=== PATIENT | female | born 1965 | race Caucasian/White ===

== ENCOUNTER 2018-12-19 04:57 | Emergency (ER) | payer BC ==
[~2018-12-19] VITALS: Ht 160 cm; Wt 59.5 kg
[~2018-12-19 04:57] MED LIST: AMOXICILLIN500 MG PO; AMOXICILLIN875 MG OR; ANTIVERT PO; ANTIVERT12.5 MG PO; CIPROFLOXACN500 MG PO; CLONAZEP ODT0.5 MG OR; CLONAZEPAM0.5 MG PO; FLAGYL500 MG PO; FLEXERIL OR; FLUARIX QUADRIV1 INJ IM; MEDDOSEPAK PO; MULTIVITAMI1 PO; MULTIVITAMIN PO; NAPROXEN500 MG OR; PERCOCET 10/31 COMBO PO; PERCOCET 5/325M1 TAB OR; PRAVASTATIN20 MG PO; ZOFRAN ODT4 MG PO
[2018-12-19 05:34] LABS: URINE BILIRUBIN - DIPSTICK NEGATIVE (NEGATIVE); URINE BLOOD DIPSTICK LARGE (NEGATIVE); URINE COLOR YELLOW; URINE GLUCOSE - DIPSTICK NEGATIVE (NEGATIVE); URINE KETONE NEGATIVE (NEGATIVE); URINE LEUK ESTERASE NEGATIVE (NEGATIVE); URINE NITRITE - DIPSTICK NEGATIVE (Negative); URINE PROTEIN - DIPSTICK NEGATIVE (NEG-TRACE); URINE SPECIFIC GRAVITY >=1.030; URINE UROBILINOGEN - DIPSTICK 0.2 E.U./dL (0.2)
[2018-12-19 05:43] LABS: HEMATOCRIT 37.1 % (37.0-47.0); HEMOGLOBIN 12.7 g/dl (12.0-16.0); IMMATURE GRANULOCYTES 0.5 % (0.0-5.0); MEAN CELL VOLUME 95.6 fL CALC (80.0-100.0); MEAN CORPUSCULAR HGB 32.7 pG CALC (26.0-32.0); MEAN CORPUSCULAR HGB CONC 34.2 g/L CALC (32.0-36.0); NEUT# 10.61 thou/uL (2.00-7.15); RED BLOOD COUNT 3.88 mill/uL (4.20-5.60); RED CELL DISTRI WIDTH 12.1 % (11.5-15.5)
[2018-12-19 06:08] LABS: ALBUMIN 4.3 g/dL (3.2-5.0); ALKALINE PHOSPHATASE 64 u/l (38-126); AMYLASE 56 u/l (30-110); ANION GAP 13 (6-22 (CALC)); BILIRUBIN, TOTAL 0.3 mg/dL (0.0-1.4); BUN 17 mg/dL (7-17); BUN/CREATININE RATIO 25 (12-20 (CALC)); CARBON DIOXIDE 23 mmol/l (22-30); CHLORIDE 108 mmol/l (95-108); CREATININE 0.7 mg/dL (0.5-1.0); GFR > 60 ML/MIN (>=60 (CALC)); GFR FOR AFR.AMER. > 60 ML/MIN (>=60 (CALC)); LIPASE 88 u/l (23-300); POTASSIUM 4.5 mmol/l (3.5-5.1); SGOT/AST 33 u/l (14-36); SODIUM 140 mmol/l (137-146); TOTAL PROTEIN 6.7 g/dL (6.3-8.2)
[2018-12-19] MEDS ORDERED: TORADOL PO (08:19)
[2018-12-19 08:32] VITALS: BP 97/53
== END 2018-12-19 08:49 | disposition home or self-care (01) | DRG 446 ==
LOC: ED 04:57
PROVIDERS: Emergency Medicine
DX: K80.80 Other cholelithiasis without obstruction (principal); R31.9 Hematuria, unspecified; R10.31 Right lower quadrant pain; R11.2 Nausea with vomiting, unspecified

== ENCOUNTER 2021-01-02 13:17 | Emergency (ER) | payer BC ==
[~2021-01-02] VITALS: Ht 160 cm; Wt 61.3 kg
[~2021-01-02 13:17] MED LIST changes: +TORADOL PO
[2021-01-02] MEDS ORDERED: MV-ONE PO (13:33)
[2021-01-02 14:14] LABS: GFR > 60 ML/MIN (>=60 (CALC)); GFR FOR AFR.AMER. > 60 ML/MIN (>=60 (CALC))
[2021-01-02 14:17] LABS: HEMOGLOBIN 14.3 g/dl (12.0-16.0); MEAN CELL VOLUME 97.1 fL CALC (80.0-100.0); MEAN CORPUSCULAR HGB 32.2 pG CALC (26.0-32.0); MEAN CORPUSCULAR HGB CONC 33.2 g/dL CAL (32.0-36.0); NEUT# 3.48 thou/uL (2.00-7.15); RED BLOOD COUNT 4.44 mill/uL (4.20-5.60); RED CELL DISTRI WIDTH 11.8 % (11.5-15.5)
[2021-01-02 14:21] LABS: HEMATOCRIT 43.1 % (37.0-47.0)
[2021-01-02 14:27] LABS: ALBUMIN 4.7 g/dL (3.2-5.0); ALKALINE PHOSPHATASE 86 u/l (38-126); AMYLASE 79 u/l (30-110); BILIRUBIN, TOTAL 0.3 mg/dL (0.0-1.4); BUN 21 mg/dL (7-17); BUN/CREATININE RATIO 29 (12-20 (CALC)); CARBON DIOXIDE 23 mmol/l (22-30); CHLORIDE 102 mmol/l (95-108); CREATININE 0.7 mg/dL (0.5-1.0); ETHYL ALCOHOL 0 mg/dl (0-30); GFR > 60 ML/MIN (>=60 (CALC)); GFR FOR AFR.AMER. > 60 ML/MIN (>=60 (CALC)); LIPASE 141 u/l (23-300); SGOT/AST 34 u/l (14-36); SODIUM 135 mmol/l (137-146); TOTAL PROTEIN 7.7 g/dL (6.3-8.2)
[2021-01-02 14:28] LABS: ACT PARTIAL THROMBO TIME 26.1 SECONDS (20.0-32.5); ANION GAP 13 (6-22 (CALC)); INTERNATIONAL NORMALIZED RATIO 1.1 RATIO (0.7-1.3); POTASSIUM 3.4 mmol/l (3.5-5.1); PROTHROMBIN TIME 11.5 SECONDS (9.0-12.5)
[2021-01-02 16:04] LABS: URINE BILIRUBIN - DIPSTICK NEGATIVE (NEGATIVE); URINE BLOOD DIPSTICK TRACE-INTACT (NEGATIVE); URINE COLOR YELLOW; URINE GLUCOSE - DIPSTICK NEGATIVE (NEGATIVE); URINE KETONE 15 mg/dL (NEGATIVE); URINE LEUK ESTERASE NEGATIVE (NEGATIVE); URINE NITRITE - DIPSTICK NEGATIVE (Negative); URINE PROTEIN - DIPSTICK NEGATIVE (NEG-TRACE); URINE SPECIFIC GRAVITY <=1.005; URINE UROBILINOGEN - DIPSTICK 0.2 E.U./dL (0.2)
[2021-01-02 17:07] VITALS: BP 118/65
[2021-01-02] MEDS ORDERED: IBUPROFEN600 MG PO (17:10)
[2021-01-02] MEDS ORDERED: TAM75CAP PO (17:10)
== END 2021-01-02 17:15 | disposition home or self-care (01) | DRG 195 ==
LOC: ED 13:17
DX: J10.1 Influenza due to other identified influenza virus with other respiratory manifestations (principal); R09.1 Pleurisy; Z98.82 Breast implant status; Z20.822 Contact with and (suspected) exposure to COVID-19
CPT/HCPCS: Q9967

== ENCOUNTER 2022-08-12 10:21 | Emergency (ER) | payer BC ==
[2022-08-12] VITALS (14 sets, daily range): BP systolic 92–142; BP diastolic 65–86
[~2022-08-12] VITALS: Ht 160 cm; Wt 60.0 kg
[~2022-08-12 10:21] MED LIST changes: +IBUPROFEN600 MG PO; +MV-ONE PO; +TAM75CAP PO
== END 2022-08-12 13:55 | disposition home or self-care (01) | DRG 313 ==
LOC: ED 10:21
DX: R07.89 Other chest pain (principal); F41.0 Panic disorder [episodic paroxysmal anxiety]